=== PATIENT | male | born 1945 | race Caucasian/White ===

== ENCOUNTER 2018-08-06 10:04 | Inpatient (IN) | payer OTHER ==
[~2018-08-06 10:04] MED LIST: GLYCOPYRROLATE 0.4 MG INJ; NEOSTIGMINE 3 MG/3 ML SYRINGE; ROCURONIUM 50 MG INJ
[2018-08-06] MEDS ORDERED: morphine SULFATE/PF (10 MG/10 ML) INJ (11:01)
[2018-08-06] MEDS ORDERED: PROPOFOL 20 ML (11:01)
[2018-08-06] MEDS ORDERED: MIDAZOLAM 1 MG/ML 2 ML INJ (11:01)
[2018-08-06] MEDS ORDERED: ROPIVACAINE 0.5 % 30 ML VIAL (11:01)
[2018-08-06] MEDS ORDERED: CEFAZOLIN 1 GM INJ (11:03)
[2018-08-06] MEDS ORDERED: NEOMYC/POLYMYX/BACIT 30 GM OINT (11:51)
[2018-08-06] MEDS ORDERED: POLYMYXIN/BACITRACIN 1L IRRIG (11:51)
[2018-08-06] MEDS ORDERED: PHENYLephrine 10 MG INJ (12:43)
[2018-08-06] MEDS ORDERED: PHENYLephrine (100 MCG/ML) 5ML SYG ×2 (12:43→13:26)
[2018-08-06] MEDS ORDERED: KETOROLAC 30 MG INJ (13:06)
[2018-08-06] MEDS ORDERED: METOCLOPRAMIDE 10 MG INJ (13:06)
[2018-08-06] MEDS ORDERED: DEXAMETHASONE 4 MG/ML 5 ML INJ (13:06)
[2018-08-06] MEDS ORDERED: ONDANSETRON 4 MG INJ (13:06)
[2018-08-06] MEDS: TRANEXAMIC ACID 1,000 MG in DEXTROSE 5% 100 ML IV (13:09)
[2018-08-06] MEDS ORDERED: BISACODYL 10 MG SUPP PR (14:30)
[2018-08-06] MEDS ORDERED: NALOXONE (0.4 MG/ML) INJ IV ×2 (14:30→15:00)
[2018-08-06] MEDS ORDERED: SENNA/DOCUSATE NA (8.6MG/50MG) TAB PO (14:30)
[2018-08-06] MEDS ORDERED: NA PHOSPHATE/BIPHOS 133 ML ENEMA PR (14:30)
[2018-08-06] MEDS: DOCUSATE SODIUM 100 MG CAP PO ×3 (14:30→20:46)
[2018-08-06] MEDS ORDERED: MAGNESIUM HYDROXIDE 30ML CUP PO (14:30)
[2018-08-06] MEDS ORDERED: NACL 0.9% 3 ML SYG IV (14:30)
[2018-08-06] MEDS ORDERED: HYDROmorphONE 0.5 MG/0.5 ML SYG IV (15:00)
[2018-08-06] MEDS ORDERED: DIPHENHYDRAMINE 50 MG INJ IV ×2 (15:00)
[2018-08-06] MEDS ORDERED: ACETAMINOPHEN 500 MG TAB PO (15:00)
[2018-08-06] MEDS ORDERED: EPHEDrine SULFATE 50 MG/5 ML SYG IV (15:00)
[2018-08-06] MEDS ORDERED: NALBUPHINE HCL (10 MG/1 ML) INJ IV (15:00)
[2018-08-06] MEDS ORDERED: METOCLOPRAMIDE 10 MG INJ IV (15:00)
[2018-08-06] MEDS ORDERED: LABETALOL HCL 20MG INJ IV (15:00)
[2018-08-06] MEDS ORDERED: HYDROmorphONE 1 MG/5 ML IV SYRINGE IV ×3 (15:00)
[2018-08-06] MEDS ORDERED: ONDANSETRON 4 MG INJ IV ×2 (15:00)
[2018-08-06] MEDS ORDERED: MEPERIDINE 25 MG INJ IV (15:00)
[2018-08-06] MEDS ORDERED: OXYCODONE/ACETAMINOPHEN (5/325) TAB PO ×2 (15:00)
[2018-08-06] MEDS ORDERED: hydrALAzine 20 MG INJ IV (15:00)
[2018-08-06] MEDS ORDERED: morphine 2 MG INJ IV ×2 (15:00)
[2018-08-06] MEDS ORDERED: FENTAnyl 50 MCG/ML VIAL IV ×3 (15:00)
[2018-08-06] MEDS ORDERED: CEFAZOLIN 1 GM/50 ML (PMX) 50 ML IVPB (15:03)
[2018-08-06] MEDS: CEFAZOLIN 1 GM/50 ML (PMX) 50 ML IVPB (15:45)
[2018-08-06] MEDS: HYDROmorphONE 0.5 MG/0.5 ML SYG IV (22:34)
[2018-08-07 05:26] LABS: ADD MAN DIFF? NO
[2018-08-07 05:28] LABS: WHITE BLOOD COUNT 8.4 10^3/ul (4.8-10.8)
[2018-08-07 05:29] LABS: ABNORMAL IP MESSAGE 1; BASOPHILS % 0.1 % (0.0-2.0); HEMATOCRIT 35.3 % (42.0-52.0); HEMOGLOBIN 11.6 g/dl (14.0-18.0); LYMPHOCYTES # 0.6 10^3/ul (0.8-2.9); LYMPHOCYTES % 6.8 % (15.0-51.0); MEAN CORPUSCULAR HEMOGLOBIN 30.4 pg (29.0-33.0); MEAN CORPUSCULAR HGB CONC 32.9 g/dl (32.0-37.0); MEAN CORPUSCULAR VOLUME 92.7 fl (82.0-101.0); MEAN PLATELET VOLUME 10.1 fl (7.4-10.4); MONOCYTE # 0.7 10^3/ul (0.3-0.9); MONOCYTES % 8.7 % (0.0-11.0); NEUTROPHIL # 7.1 10^3/ul (1.6-7.5); PLATELET COUNT 179 10^3/UL (140-415); POSITIVE DIFF @See below; RED BLOOD COUNT 3.81 10^6/ul (4.70-6.10); RED CELL DISTRIBUTION WIDTH 12.3 % (11.5-14.5)
[2018-08-07] MEDS: CEFAZOLIN 1 GM/50 ML (PMX) 50 ML IVPB ×2 (05:46→13:32)
[2018-08-07 06:03] LABS: ANION GAP 7 (5-13); BLOOD UREA NITROGEN 22 mg/dl (7-20); CARBON DIOXIDE 30 mmol/L (21-31); CHLORIDE 98 mmol/L (97-110); GLUCOSE 162 mg/dl (70-220); POTASSIUM 4.1 mmol/L (3.5-5.1); SODIUM 135 mmol/L (135-144)
[2018-08-07] MEDS: DOCUSATE SODIUM 100 MG CAP PO ×2 (08:37→20:36)
[2018-08-07] MEDS: HYDROCODONE/APAP (5/325) TAB PO (19:27)
[2018-08-08] MEDS: HYDROCODONE/APAP (5/325) TAB PO ×4 (04:37→21:41)
[2018-08-08] MEDS ORDERED: PANTOPRAZOLE (EC) 40 MG TAB PO (04:40)
[2018-08-08 04:58] LABS: ADD MAN DIFF? NO
[2018-08-08 05:03] LABS: WHITE BLOOD COUNT 6.3 10^3/ul (4.8-10.8)
[2018-08-08 05:03] LABS: BASOPHILS % 0.2 % (0.0-2.0); EOSINOPHILS % 0.5 % (0.0-7.0); HEMATOCRIT 28.6 % (42.0-52.0); HEMOGLOBIN 9.6 g/dl (14.0-18.0); LYMPHOCYTES # 1.4 10^3/ul (0.8-2.9); LYMPHOCYTES % 21.3 % (15.0-51.0); MEAN CORPUSCULAR HEMOGLOBIN 30.9 pg (29.0-33.0); MEAN CORPUSCULAR HGB CONC 33.6 g/dl (32.0-37.0); MEAN PLATELET VOLUME 9.7 fl (7.4-10.4); MONOCYTE # 0.9 10^3/ul (0.3-0.9); MONOCYTES % 13.9 % (0.0-11.0); NEUTROPHIL # 4.1 10^3/ul (1.6-7.5); NEUTROPHILS % 63.9 % (39.0-77.0); PLATELET COUNT 149 10^3/UL (140-415); RED BLOOD COUNT 3.11 10^6/ul (4.70-6.10); RED CELL DISTRIBUTION WIDTH 12.7 % (11.5-14.5)
[2018-08-08 05:32] LABS: ANION GAP 5 (5-13); BLOOD UREA NITROGEN 21 mg/dl (7-20); CALCIUM 8.5 mg/dl (8.4-10.2); CARBON DIOXIDE 31 mmol/L (21-31); CHLORIDE 101 mmol/L (97-110); CREATININE 0.73 mg/dl (0.61-1.24); GLUCOSE 116 mg/dl (70-220); SODIUM 137 mmol/L (135-144)
[2018-08-08] MEDS: PANTOPRAZOLE (EC) 40 MG TAB PO (05:32)
[2018-08-08] MEDS: DOCUSATE SODIUM 100 MG CAP PO ×2 (08:46→21:31)
[2018-08-08] MEDS: INFLUENZA VIRUS VACCINE 0.5 ML (DISPENSING) IM* (10:00)
[2018-08-09 05:40] LABS: ADD MAN DIFF? NO
[2018-08-09 05:52] LABS: BASOPHILS % 0.2 % (0.0-2.0); EOSINOPHILS % 0.5 % (0.0-7.0); HEMOGLOBIN 9.8 g/dl (14.0-18.0); LYMPHOCYTES # 1.1 10^3/ul (0.8-2.9); LYMPHOCYTES % 18.6 % (15.0-51.0); MEAN CORPUSCULAR HEMOGLOBIN 30.8 pg (29.0-33.0); MEAN CORPUSCULAR HGB CONC 33.8 g/dl (32.0-37.0); MEAN CORPUSCULAR VOLUME 91.2 fl (82.0-101.0); MEAN PLATELET VOLUME 9.8 fl (7.4-10.4); MONOCYTE # 0.8 10^3/ul (0.3-0.9); MONOCYTES % 12.9 % (0.0-11.0); NEUTROPHIL # 3.9 10^3/ul (1.6-7.5); NEUTROPHILS % 67.6 % (39.0-77.0); PLATELET COUNT 164 10^3/UL (140-415); RED BLOOD COUNT 3.18 10^6/ul (4.70-6.10); RED CELL DISTRIBUTION WIDTH 12.5 % (11.5-14.5)
[2018-08-09 05:52] LABS: WHITE BLOOD COUNT 5.8 10^3/ul (4.8-10.8)
[2018-08-09] MEDS: PANTOPRAZOLE (EC) 40 MG TAB PO (06:00)
[2018-08-09 06:06] LABS: ANION GAP 1 (5-13); BLOOD UREA NITROGEN 10 mg/dl (7-20); CALCIUM 8.5 mg/dl (8.4-10.2); CARBON DIOXIDE 33 mmol/L (21-31); CHLORIDE 102 mmol/L (97-110); CREATININE 0.61 mg/dl (0.61-1.24); GLUCOSE 128 mg/dl (70-220); SODIUM 136 mmol/L (135-144)
[2018-08-09] MEDS: HYDROCODONE/APAP (5/325) TAB PO ×3 (06:40→17:40)
[2018-08-09] MEDS: DOCUSATE SODIUM 100 MG CAP PO (08:47)
[2018-08-09] MEDS: ASPIRIN (EC) 325 MG TAB PO (11:02)
== END 2018-08-09 18:00 | disposition home or self-care (01) | DRG 470 ==
LOC: REC 10:04 → MS1 16:10
PROVIDERS: Specialist
PROC: 0SRD069 Replacement of Left Knee Joint with Oxidized Zirconium on Polyethylene Synthetic Substitute, Cemented, Open Approach (ICD-10-PCS; principal; 2018-08-06 12:00)
DX: M17.12 Unilateral primary osteoarthritis, left knee (principal); I10 Essential (primary) hypertension; E78.5 Hyperlipidemia, unspecified; I25.10 Atherosclerotic heart disease of native coronary artery without angina pectoris; Z95.5 Presence of coronary angioplasty implant and graft; E11.9 Type 2 diabetes mellitus without complications
CPT/HCPCS: 80048; 82962; 85025; 87086; 88304; 90686; 97116; 97161; 97530